=== PATIENT | male | born 2000 | race Caucasian/White ===

== ENCOUNTER 2022-04-25 05:18 | Day surgery (SDC) | payer SELFPAY ==
[2022-04-25] MEDS ORDERED: KETOROLAC TROMETHAMINE 30 MG/1 ML VIAL IVPUSH ONE (05:41)
[2022-04-25] MEDS ORDERED: SODIUM CHLORIDE 1,000 ML IV SCH ×2 (05:45→12:24)
[2022-04-25] MEDS ORDERED: KETOROLAC TROMETHAMINE 30 MG/1 ML VIAL ONE ×2 (05:46→17:49)
[2022-04-25 06:37] LABS: BASO % 0.2 % (0-2.0); EOS % 0.7 % (0-4.5); HEMOGLOBIN 14.7 GM/dL (11.7-16.9); LYMPH % 23.8 % (8-40); MCH 30.1 pg (25.7-33.7); MCHC 34.9 g/dl (32.0-35.9); MEAN CELL VOLUME 86.3 fl (80-96); MEAN PLT VOLUME 9.2 fl (7.5-11.1); MONO % 7.7 % (3.8-10.2); NEUT % 67.6 % (42.8-82.8); PLATELET COUNT 240 10^3/uL (134-434); RBC 4.86 M/mm3 (4.00-5.60); RDW 13.5 % (11.9-15.9); WHITE BLOOD COUNT 7.5 K/mm3 (4.0-10.0)
[2022-04-25 06:59] LABS: CALCIUM 9.1 mg/dL (8.5-10.1)
[2022-04-25 07:00] LABS: ALBUMIN 4.1 g/dl (3.4-5.0); BLOOD UREA NITROGEN 18.3 mg/dL (7-18)
[2022-04-25 07:03] LABS: CREATININE 0.8 mg/dL (0.55-1.3)
[2022-04-25 07:04] LABS: BILIRUBIN,TOTAL 1.1 mg/dL (0.2-1); TOT PROT 7.8 g/dl (6.4-8.2)
[2022-04-25 09:04] LABS: BILIRUBIN,TOTAL 1.6 mg/dl (0.2-1); CALCIUM 9.1 mg/dl (8.5-10); CREATININE 0.8 mg/dl (0.55-1.3); TOT PROT 6.5 g/dl (6.4-8.2)
[2022-04-25 15:06] VITALS: BMI 29.7
[2022-04-25] MEDS ORDERED: PIPERACILLIN/TAZOB 3.375 GM 3.375 GM in DEXTROSE 5%-WATER - 50 ML IVPB SCH (15:15)
[2022-04-25] MEDS ORDERED: PIPERACILLIN/TAZOBACTAM 3.375 GM VIAL IVPB ONE (15:25)
[2022-04-25] MEDS ORDERED: DEXTROSE 5%-WATER - 50 ML IVPB ONE (15:26)
[2022-04-25] MEDS ORDERED: DEXTROSE 5%-WATER 100 ML IVPB ONE (15:56)
[2022-04-25] MEDS ORDERED: PIPERACILLIN/TAZOBACTAM 4.5 GM VIAL IVPB ONE (15:57)
[2022-04-25] MEDS: PIPERACILLIN/TAZOB 4.5 GM 4.5 GM in DEXTROSE 5%-WATER 100 ML IVPB SCH (16:15)
[2022-04-25] MEDS ORDERED: BUPIVACAINE HCL/PF 2.5 MG/ML - 30 ML VIAL IJ ONE (16:26)
[2022-04-25] MEDS ORDERED: PROPOFOL 20 ML ONE ×2 (16:27→17:40)
[2022-04-25] MEDS ORDERED: LIDOCAINE HCL/PF 2% SDV 5ML VIAL ONE (16:27)
[2022-04-25] MEDS ORDERED: fentaNYL CITRATE 250 MCG/5 ML VIAL ONE (16:27)
[2022-04-25] MEDS ORDERED: ROCURONIUM BROMIDE 50 MG/5 ML SYRINGE ONE (16:27)
[2022-04-25] MEDS ORDERED: MIDAZOLAM HCL 2 MG/2 ML SINGLE DOSE VIAL ONE (16:27)
[2022-04-25] MEDS ORDERED: SUCCINYLCHOLINE CHLORIDE 200 MG/10 ML SYRINGE ONE (16:31)
[2022-04-25] MEDS ORDERED: NEOSTIGMINE METHYLSULFATE 0.5 MG/1 ML - 10 ML MDV ONE (17:26)
[2022-04-25] MEDS ORDERED: PROMETHAZINE HCL 25 MG/1 ML VIAL IVPUSH PRN (18:19)
[2022-04-25] MEDS ORDERED: ONDANSETRON 4 MG/2 ML VIAL IVPUSH PRN (18:19)
[2022-04-25] MEDS ORDERED: ACETAMINOPHEN 1000 MG/100 ML BAG IVPB PRN (18:20)
[2022-04-25] MEDS ORDERED: ACETAMINOPHEN INJECTION 100 ML IVPB ONE (18:25)
[2022-04-25] MEDS ORDERED: LACTATED RINGERS SOLUTION 1,000 ML IV SCH (18:30)
[2022-04-25] MEDS ORDERED: ONDANSETRON 4 MG/2 ML VIAL ONE (18:41)
[2022-04-25] MEDS: KETOROLAC TROMETHAMINE 30 MG/1 ML VIAL IVPUSH SCH (19:19)
[2022-04-26] MEDS ORDERED: DEXTROSE 5%-WATER 100 ML IVPB ONE (00:17)
[2022-04-26] MEDS ORDERED: PIPERACILLIN/TAZOBACTAM 4.5 GM VIAL IVPB ONE (00:18)
[2022-04-26] MEDS: PIPERACILLIN/TAZOB 4.5 GM 4.5 GM in DEXTROSE 5%-WATER 100 ML IVPB SCH ×2 (00:40→09:16)
[2022-04-26] MEDS: KETOROLAC TROMETHAMINE 30 MG/1 ML VIAL IVPUSH SCH ×2 (00:41→05:40)
[2022-04-26 08:29] LABS: ALBUMIN 3.5 g/dl (3.4-5.0); BILIRUBIN,TOTAL 1.8 mg/dl (0.2-1); CALCIUM 8.9 mg/dl (8.5-10); CREATININE 0.9 mg/dl (0.55-1.3); MAGNESIUM 1.8 mg/dL (1.8-2.4); TOT PROT 5.9 g/dl (6.4-8.2)
[2022-04-26 08:37] LABS: HEMATOCRIT 40.6 % (35.4-49); HEMOGLOBIN 14.1 G/dL (11.7-16.9); MCH 30.5 pg (25.7-33.7); MCHC 34.8 g/dl (32.0-35.9); MEAN CELL VOLUME 87.7 fl (80-96); MEAN PLT VOLUME 8.9 fl (7.5-11.1); PLATELET COUNT 220.3 10^3/uL (134-434); RBC 4.63 10^6/uL (4.00-5.60); RDW 14.8 % (11.9-15.9); WHITE BLOOD COUNT 8.4 10^3/uL (4.0-10.8)
[2022-04-26 09:23] VITALS: BP 110/68; PULSE 74; TEMP 98.5
== END 2022-04-26 11:38 | disposition home or self-care (01) ==
LOC: FER 05:18 → FM/S 10:57 → UNDOADMOB 10:57 → SUATTDRO 20:06 → FM/S 20:06 → FASUSAT 20:06 → EDSTATUS 20:49 → FASUSAT 04-26 11:38
PROVIDERS: ATTEND Nurse Practitioner Acute Care
PROC: 0FT44ZZ Resection of Gallbladder, Percutaneous Endoscopic Approach (ICD-10-PCS; principal; 2022-04-25 17:12)
DX: K80.12 Calculus of gallbladder with acute and chronic cholecystitis without obstruction (principal)
CPT/HCPCS: 36415; 74182-TC; 76705-TC; 80053; 80307; 82550; 82553; 83690; 83735; 85025; 88304-TC; 94760; A9579; C1887; C9803-CS; U0003; U0005